=== PATIENT | male | born 1955 | race Caucasian/White ===

== ENCOUNTER → 2017-01-06 | Outpatient (CLI) | payer BC ==
--- NOTE | 2017-01-06 16:16 | RADRPT ---
PROCEDURE: XR Right Hip. CLINICAL INDICATION: Right hip pain. TECHNIQUE: Two views. Frontal and lateral. COMPARISON: No prior studies are available for comparison. FINDINGS: There is a aaron in the shaft of the femur. There is no fracture or dislocation. Both hips appear otherwise normal. Articular surfaces are intact. There is no lytic or blastic lesion. IMPRESSION: 1. Surgical aaron in the shaft of the femur. 2. Otherwise unremarkable study. RPTAT: QQ .Arvind Sloan MD, MD Date Time Electronically viewed and signed by .Arvind Sloan MD, MD on 01/06/2017 16:16 .R/
--- NOTE | 2017-01-06 16:18 | RADRPT ---
PROCEDURE: Right knee radiographs. CLINICAL INDICATION: Right knee pain. TECHNIQUE: Four views. Weight bearing. Frontal, lateral, oblique, and patellar view. COMPARISON: No prior studies are available for comparison. FINDINGS: There is a surgical aaron in the shaft of the femur. There is no acute fracture. There is no disloca tion. An intra-articular loose body is present in the intracondylar notch measuring 1 cm in diameter. Articular surfaces are intact. There is no lytic or blastic lesion. IMPRESSION: 1. Surgical aaron in the shaft of the femur. 2. Intra-articular loose body in the intercondylar notch measuring 1 cm. 3. Otherwise unremarkable study. RPTAT: QQ .Arvind Sloan MD, MD Date Time Electronically viewed and signed by .Arvind Sloan MD, on 01/06/2017 16:17 .R/
== END | disposition home or self-care (01) ==
LOC: HKI 11:14
PROVIDERS: ATTEND Orthopaedic Surgery
DX: M25.561 Pain in right knee (principal); S83.206A Unspecified tear of unspecified meniscus, current injury, right knee, initial encounter; X58.XXXA Exposure to other specified factors, initial encounter
CPT/HCPCS: 73502; 73564; G0463